=== PATIENT | female | born 1980 | race Caucasian/White ===

== ENCOUNTER 2016-06-12 14:28 | Observation (INO) | payer OTHER ==
[2016-06-12] MEDS ORDERED: IV RINGERS,LACTATED 1000ML 1,000 ML IV PRN (15:00)
[2016-06-12 18:17] LABS: BILIRUBIN,URINE SMALL (NEG); GLUCOSE,URINE NEGATIVE (NEG); NITRITE,URINE NEGATIVE (NEG); PROTEIN,URINE 100 mg/dL (NEG-TRACE)
[2016-06-12 18:31] LABS: BACTERIA,URINE 0 /HPF (0-FEW); RBC,URINE RARE /HPF (0-2); SQUAMOUS EPITHELIAL CELL,UR OCC /LPF; WBC,URINE OCC /HPF (0-4)
== END 2016-06-12 18:30 | disposition home or self-care (01) ==
LOC: 3 SO LND 14:28
PROVIDERS: ADMIT Family Medicine; ATTEND Family Medicine
DX: O26.893 Other specified pregnancy related conditions, third trimester (principal); R10.2 Pelvic and perineal pain; Z3A.33 33 weeks gestation of pregnancy
CPT/HCPCS: 81001; 87086; 96360; G0378; G0379; J7120

== ENCOUNTER → 2016-07-15 | Outpatient (CLI) | payer OTHER ==
[~2016-07-15] MED LIST: HYDR-971 PO; HYDR25CA PO; NAPR500T3 PO
--- NOTE | 2016-07-15 12:31 | RAD ---
Follow-up OB ultrasound History: Evaluate size and dates for . Comparison: Ultrasound OB March 23, 2016. Findings: There is a single intrauterine gestation in cephalic presentation. The placenta is anterior in location without evidence of placenta previa. Amniotic fluid index is 33.2 cm. Cervical length is 5.11 cm. Biometric data is as follows: BPD = 9.61 cm for 39 weeks 2 days. HC = 35.27 cm for 41 weeks 1 days. AC = 34.78 cm for 38 weeks 5 days. FL = 7.87 cm for 40 weeks 2 days. HC/AC ratio = 1.01, within normal limits. Overall, the average ultrasound age age is 39 weeks 6 days for an estimated date of delivery of July 16, 2016. The estimated date of delivery provided by comparison study was July 28, 2016. Estimated weight is 3773 +/- 558 grams which is at the 84th percentile. A 4 chamber heart is identified with positive cardiac activity. The estimated heart rate is 139 beats per minute. Survey anomalies was not performed. Impression: 1. Single live intrauterine gestation with average ultrasound age of 39 weeks 6 days. 2. Amniotic fluid index is 33.2 cm which would indicate polyhydramnios.
== END | disposition home or self-care (01) ==
LOC: US 08:00
PROVIDERS: ATTEND Family Medicine
DX: P08.1 Other heavy for gestational age newborn (principal)
CPT/HCPCS: 76816

== ENCOUNTER 2016-07-19 20:03 | Inpatient (IN) | payer OTHER ==
[~2016-07-19] VITALS: Ht 167.6 cm; Wt 125.6 kg
[2016-07-19] MEDS ORDERED: IBUPROFEN 600 MG TABLET. PO PRN (20:15)
[2016-07-19] MEDS ORDERED: fentaNYL PF VIAL 100 MCG/2 ML VIAL IV PRN (20:15)
[2016-07-19] MEDS ORDERED: 0.9 % SODIUM CHLORIDE 10 ML DISP.SYRIN. IV PRN (20:15)
[2016-07-19] MEDS ORDERED: BUTORPHANOL 2 MG/ML VIAL. IV PRN (20:15)
[2016-07-19] MEDS ORDERED: OXYTOCIN 30 UNIT/500 ML PREMIX 500 ML IV PRN (20:15)
[2016-07-19] MEDS ORDERED: ONDANSETRON PF 4 MG/2 ML VIAL. IV PRN (20:15)
[2016-07-19] MEDS ORDERED: DINOPROSTONE 10 MG SUPP.VAG VG ONE (20:15)
[2016-07-19] MEDS ORDERED: ZOLPIDEM 5 MG TABLET. PO PRN (20:15)
[2016-07-19] MEDS ORDERED: LIDOCAINE 1% PF 30 ML VIAL. INJ PRN (20:15)
[2016-07-19] MEDS ORDERED: TERBUTALINE 1 MG/ML VIAL. SQ PRN (20:15)
[2016-07-19] MEDS: IV RINGERS,LACTATED 1000ML 1,000 ML IV SCH ×2 (20:28→22:14)
[2016-07-19] MEDS ORDERED: AMPICILLIN SODIUM 2 GM in IV NORMAL SALINE 100ML 100 ML IV ONE (20:30)
[2016-07-19 20:58] VITALS: BP 128/85
[2016-07-19 21:00] LABS: BILIRUBIN,URINE NEGATIVE (NEG); GLUCOSE,URINE NEGATIVE (NEG); NITRITE,URINE NEGATIVE (NEG); PH,URINE 6.5; PROTEIN,URINE NEGATIVE (NEG-TRACE); UROBILINOGEN,URINE 0.2 mg/dL (0.2 mg/dL)
[2016-07-19 21:08] LABS: BACTERIA,URINE MODERATE /HPF (0-FEW); RBC,URINE 0 /HPF (0-2); SQUAMOUS EPITHELIAL CELL,UR MANY /LPF
[2016-07-19 21:09] LABS: YEAST,URINE PRESENT /HPF
[2016-07-19 21:22] LABS: HEMATOCRIT 34.2 % (36.0-47.0); HEMOGLOBIN 11.6 g/dL (12.0-15.5); RED BLOOD COUNT 3.7 x10^6/uL (3.50-5.40); RED CELL DISTRIBUTION WIDTH 12.9 % (11.5-14.5); WHITE BLOOD COUNT 11.2 x10^3/uL (4.0-11.0)
[2016-07-20] MEDS: AMPICILLIN SODIUM 1 GM in IV NORMAL SALINE 50ML 50 ML IV SCH ×5 (00:11→16:45)
[2016-07-20] MEDS ORDERED: OXYTOCIN 30 UNIT/500 ML PREMIX 500 ML IV PRN ×2 (06:00→19:15)
[2016-07-20] MEDS: IV RINGERS,LACTATED 1000ML 1,000 ML IV SCH (06:24)
--- NOTE | 2016-07-20 10:06 | RAD ---
Obstetrical ultrasound-Limited, 07/20/2016: History: Large for dates, check position and amniotic fluid volume There is a single intrauterine fetus present in a cephalic orientation. The heart rate was 130 bpm. movement is present. The previous ultrasound study of 03/23/2016 suggested an EDC of 07/28/2016. A full survey was not performed at this time. The placenta lies anteriorly. Today's amniotic fluid index was measured at 21, which is at the upper limits of normal. Note is made that the HECTOR calculated on the exam of 07/15/2016 was 33. IMPRESSION: 1. Single viable fetus in a cephalic orientation. 2. The amniotic fluid volume is at the upper limits of normal.
[2016-07-20] MEDS ORDERED: ROPIVacaine 0.2% IN 0.9%NACL PF 40 MG/20 ML DISP.SYRIN. ONE (14:39)
[2016-07-20] MEDS ORDERED: L&D EPIDURAL CASSETTE 100 ML EP ONE (14:39)
--- NOTE | 2016-07-20 15:28 | PDOC1 ---
OB - History Hx of Present Care: Good Care Ultrasounds: Normal mid trimester US, Abnormal US findings (macrosomia.) Past Family/Social History * Past Medical, Surgical, Family and Obstetric Histories reviewed from chart. Blood Type: B+ Rubella: Not Immune RPR/VDRL: Negative GBS Status: Negative HBsAG: Negative OB - Chief Complaint & HPI Date of Admission: Date of Admission: Jul 19, 2016 at 20:03 Chief Complaint/History : 3 Para: 1 EDC: Jul 28, 2016 Reason for admission: induction of labor Indication for induction: other (macrosomia. Syncope and deceleration during NST) Admission Nurse Assessment Rev: Yes Problems: OB - Admission Exam Physical Exam Vitals: VS - Last 72 Hours, by Label Date Time Temp Pulse Resp B/P (MAP) Pulse Ox O2 Delivery O2 Flow Rate FiO2 07/20/16 12:30 18 Room Air 07/20/16 02:16 22 Room Air 07/19/16 20:58 98.2 117 20 128/85 (99) 100 Room Air 98.2 HEENT: Normal, Nasal Mucosa Normal, Oropharynx Normal, Moist Membranes, Fontanelles Normal Lungs: Clear, Equal Abdomen: Gravid Extremities: Normal Pulses, No tenderness or swelling Reflexes: Normal Cervical Dilatation: 2cm Effacement: 50% Station: -3 Membranes: Intact Amniotic Fluid: Clear Heart Rate: Normal Decelerations: Prolonged decelerations Short Term Variability: Present Penitentiary Variability: Moderate Contractions on Admission: None SACHA MONDRAGON MD Jul 20, 2016 15:28
[2016-07-20] MEDS ORDERED: ROPIVacaine 0.2% PF 10 ML VIAL. EPI ONE (15:30)
[2016-07-20] MEDS ORDERED: ePHEDrine PF IN SALINE 50 MG/5 ML DISP.SYRIN IV PRN (15:30)
[2016-07-20] MEDS ORDERED: ONDANSETRON PF 4 MG/2 ML VIAL. IV PRN (15:30)
[2016-07-20] MEDS ORDERED: fentaNYL PF VIAL 100 MCG/2 ML VIAL EPI ONE (15:30)
[2016-07-20] MEDS ORDERED: L&D EPIDURAL CASSETTE 100 ML EP PRN (15:30)
[2016-07-20] MEDS ORDERED: NALOXONE 0.4 MG/ML VIAL. IV PRN (15:30)
[2016-07-20] MEDS ORDERED: HYDROcodone/APAP 5/325MG 1 TAB TABLET PO PRN ×2 (19:15)
[2016-07-20] MEDS ORDERED: ZOLPIDEM 5 MG TABLET. PO PRN (19:15)
[2016-07-20] MEDS ORDERED: ACETAMINOPHEN 325 MG TABLET. PO PRN (19:15)
[2016-07-20] MEDS ORDERED: PHENYLEPH/MINERAL OIL/PETROLAT RECTAL OINTMENT 28GM TUBE. RC PRN (19:15)
[2016-07-20] MEDS ORDERED: MMR per PROTOCOL. MC PRN (19:15)
[2016-07-20] MEDS ORDERED: diphenhydrAMINE HCL 25 MG CAPSULE PO PRN (19:15)
[2016-07-20] MEDS ORDERED: SIMETHICONE 80 MG TAB.CHEW PO PRN (19:15)
[2016-07-20] MEDS ORDERED: 0.9 % SODIUM CHLORIDE 10 ML DISP.SYRIN. IV PRN (19:15)
[2016-07-20] MEDS ORDERED: MAG HYDROX/ALUMINUM HYD/SIMETH 30 ML ORAL.SUSP PO PRN (19:15)
[2016-07-20] MEDS ORDERED: BENZOCAINE 20% TOPICAL AEROSOL SPRAY 57GM CAN. TP PRN (19:15)
[2016-07-20] MEDS ORDERED: MAGNESIUM HYDROXIDE 2,400 MG/30 ML ORAL.SUSP. PO PRN (19:15)
[2016-07-20] MEDS ORDERED: HYDROCORTISONE 1% TOPICAL OINTMENT 30GM TUBE. TP PRN (19:15)
[2016-07-20 21:45] VITALS: BP 147/81
[2016-07-20] MEDS ORDERED: PNEUMOCOCCAL VAX SCREEN BY RX. MC PRN (22:30)
[2016-07-20 22:45] VITALS: BP 130/80
--- NOTE | 2016-07-20 23:12 | LDN ---
DATE OF DELIVERY: 07/20/2016 DATE OF DELIVERY: 07/20/2016 CLINICAL COURSE: This patient is a 35-year-old female, G3, P1, AB1 with risks of smoking and history of macrosomic infant. Additional risk factor of GBS positive status. The patient did receive 5 doses of antibiotics during labor course. Mother was brought for term induction at 38 weeks and 6 days. Due to suspected macrosomia and bradycardia on early NST, status post borderline polyhydramnios, she underwent Cervidil induction and subsequently started on Pitocin. She did progress to 45 cm dilatation, had artificial rupture of membranes with copious amounts of clear fluid. Labor course was complicated by early decelerations, but mother did progress to complete and delivered a viable female . Initially, the head was delivered and suctioned. Subsequently, the body was delivered and compound/nuchal cord was noted. This was reduced immediately with mild trauma due to scalp electrode noted on infant's scalp at delivery. It was a midline peroneal laceration which was first-degree and a right sided ____ laceration which was first-degree. These were sutured with 3-0 chromic in a running locking fashion with good hemostasis noted. Placenta was delivered intact with 3-vessel cord. Uterus was firm with Pitocin and palpation. There was approximately 250 mL blood loss. had Apgars of 8, 9, and 9. Weight of 7 pounds 6.3 ounces, 3355 grams at 1825. Mother and baby went to recovery in stable condition. SACHA MONDRAGON MD DR: ROSALINDA/flory JOB#: [id number] / [id number]
[2016-07-20] MEDS: IBUPROFEN 800 MG TABLET. PO SCH (23:15)
[2016-07-21] MEDS ORDERED: HYDR25CA PO (00:20)
[2016-07-21 02:59] VITALS: BP 111/62
[2016-07-21 04:41] LABS: BASO # 0.1 x10^3/uL (0.0-0.2); BASO % 1 % (0-3); EOS % 1 % (0-3); HEMATOCRIT 29.6 % (36.0-47.0); LYMPH # 2.1 x10^3/uL (1.0-4.8); LYMPH % 18 % (24-48); MEAN CORPUSCULAR HEMOGLOBIN 31 pg (25-35); MEAN CORPUSCULAR HGB CONC 34 g/dL (31-37); MEAN CORPUSCULAR VOLUME 93 fL (79-100); MONO % 9 % (0-9); NEUT % 72 % (31-73); PLATELET COUNT 207 x10^3/uL (140-400); RED BLOOD COUNT 3.18 x10^6/uL (3.50-5.40); RED CELL DISTRIBUTION WIDTH 13.2 % (11.5-14.5); WHITE BLOOD COUNT 11.8 x10^3/uL (4.0-11.0)
[2016-07-21 06:19] VITALS: BP 112/70
[2016-07-21 06:20] LABS: RPR REFLEX Non Reactive (Non Reactive)
[2016-07-21] MEDS: IBUPROFEN 800 MG TABLET. PO SCH (08:16)
[2016-07-21] MEDS ORDERED: DIPHTH,PERTUSS(ACELL),TET TOX 0.5 ML DISP.SYRIN. VAX IM ONE (09:00)
[2016-07-21] MEDS ORDERED: PNEUMOC CONJ VACC 23-VALENT 0.5 ML VIAL. VAX IM ONE (09:00)
[2016-07-21] MEDS ORDERED: MEASLES, MUMPS & RUBELLA VACC 0.5 ML VIAL. VAX SQ ONE (10:00)
[2016-07-21] MEDS: FERROUS SULFATE 325 MG TABLET. PO SCH ×2 (10:16→18:03)
[2016-07-21] MEDS: DOCUSATE SODIUM 100 MG CAPSULE. PO PRN ×2 (10:16→18:03)
[2016-07-21 10:18] VITALS: BP 131/60
[2016-07-21 18:03] VITALS: BP 127/74
--- NOTE | 2016-07-21 19:27 | PDOC ---
Provider Note Provider Note Doing well VSS uterus NTTP FU in AM CAS DUNNE MD Jul 21, 2016 19:27
[2016-07-21 22:58] VITALS: BP 134/83
--- NOTE | 2016-07-22 04:14 | PDOC3 ---
OB DISCHARGE SUMMARY DATE OF ADMISSION: 07/20/16 DATE OF DISCHARGE: 07/22/16 REASON FOR ADMISSION: Onset of labor PROCEDURES: Ultrasound INTRAPARTUM PROCEDURES: Spontanous Vag Deliv OPERATIONS: None DISCHARGE DIAGNOSIS: Term Delivered DISCHARGE INFORMATION: Activity, Diet HOSPITAL COURSE Unremarkable CONDITION AT DISCHARGE Stable CAS DUNNE MD Jul 22, 2016 04:14
[2016-07-22] MEDS ORDERED: NAPR500T3 PO (04:26)
[2016-07-22] MEDS ORDERED: HYDR-971 PO (04:26)
[2016-07-22] MEDS: IBUPROFEN 800 MG TABLET. PO SCH (06:28)
[2016-07-22 11:15] VITALS: BP 130/80
[2016-07-22] MEDS ORDERED: miSOPROStol 200MCG TAB 200 MCG TABLET ONE (14:23)
[2016-07-22 16:23] VITALS: BP 130/81
== END 2016-07-22 16:59 | disposition home or self-care (01) | DRG 775 ==
LOC: 3 SO LND 20:03
PROVIDERS: ADMIT Family Medicine; ATTEND Family Medicine
PROC: 10E0XZZ Delivery of Products of Conception, External Approach (ICD-10-PCS; principal; 2016-07-20)
PROC: 0HQ9XZZ Repair Perineum Skin, External Approach (ICD-10-PCS; 2016-07-20)
PROC: 3E0P7GC Introduction of Other Therapeutic Substance into Female Reproductive, Via Natural or Artificial Opening (ICD-10-PCS; 2016-07-20)
PROC: 3E033VJ Introduction of Other Hormone into Peripheral Vein, Percutaneous Approach (ICD-10-PCS; 2016-07-20)
PROC: 10907ZC Drainage of Amniotic Fluid, Therapeutic from Products of Conception, Via Natural or Artificial Opening (ICD-10-PCS; 2016-07-20)
DX: O76 Abnormality in fetal heart rate and rhythm complicating labor and delivery (principal); O99.824 Streptococcus B carrier state complicating childbirth; O36.63X0 Maternal care for excessive fetal growth, third trimester, not applicable or unspecified; O69.81X0 Labor and delivery complicated by cord around neck, without compression, not applicable or unspecified; O70.0 First degree perineal laceration during delivery; Z3A.38 38 weeks gestation of pregnancy; Z37.0 Single live birth
CPT/HCPCS: 36415; 76815; 81001; 82947; 85027; 86593; 86850; 86900; 86901; 87086; 90707; J0290; J2590; J2795; J3010; J7120